=== PATIENT | female | born 1975 | race Caucasian/White ===

== ENCOUNTER 2017-04-10 16:34 | Emergency (ER) | payer OTHER ==
[~2017-04-10] VITALS: Ht 154.9 cm; Wt 72.9 kg
[2017-04-10 17:51] LABS: HEMATOCRIT 48.4 % (36.0-46.0); HEMOGLOBIN 16.9 G/DL (11.9-15.5); MCH 30.3 PG (29.0-34.0); MCHC 34.9 G/DL (30.0-36.0); MCV 86.7 FL (83-99); PLATELET COUNT 210 K/uL (156-360); RBC DIS.WIDTH-SD 38.5 % (39-53); RED BLOOD COUNT 5.58 M/uL (3.80-5.20)
[2017-04-10 18:03] LABS: CHLORIDE 106 mEq/L (99-109); POTASSIUM 3.8 mEq/L (3.7-5.4); SODIUM 140 mEq/L (136-147)
[2017-04-10 18:05] LABS: GLUCOSE 87 mg/dL (70-99)
[2017-04-10 18:09] LABS: CREATININE 0.7 mg/dL (0.6-1.3); GFR ESTIMATE (CALCULATED) > 59 mL/min/
[2017-04-10 18:10] LABS: UREA NITROGEN (BUN) 11 mg/dL (9-23)
[2017-04-10 18:11] LABS: TROP-I INTERPRETATION NEGATIVE; TROPONIN-I < 0.01 ng/mL (0.0-0.30)
[2017-04-10] MEDS ORDERED: PROMETHAZINE HC25 M1 PO (20:29)
[2017-04-10 20:50] VITALS: BP 132/105
== END 2017-04-10 20:51 | disposition home or self-care (01) ==
LOC: EME 16:34 → EXP 16:34
DX: J06.9 Acute upper respiratory infection, unspecified (principal); R11.2 Nausea with vomiting, unspecified; M79.7 Fibromyalgia
CPT/HCPCS: 71046; 80048; 84484; 85027; 93005; 99281; 99284; J2550; J8540